=== PATIENT | male | born 1965 | race Caucasian/White ===

== ENCOUNTER 2016-11-22 14:20 | Emergency (ER) | payer BC ==
[2016-11-22 14:40] VITALS: BP 128/79
--- NOTE | 2016-11-22 15:24 | UC ---
Ear Complaint HPI - HPI Summary HPI Summary: patient has had right ear pain for about 1 week. the area around the ear is swollen and painful. no fever. - History of Current Complaint Chief Complaint: UCEar Stated Complaint: EAR PAIN Time Seen by Provider: 11/22/16 15:10 Hx Obtained From: Patient Onset/Duration: Sudden Onset, Lasting Days Severity Initially: Moderate Severity Currently: Moderate Pain Intensity: 7 Pain Scale Used: 0-10 Numeric Associated Signs/Symptoms: Positive: Discharge, Swelling @ - neck and behind ear - Allergies/Home Medications Allergies/Adverse Reactions: Allergies Allergy/AdvReac Type Severity Reaction Status Date / Time Morphine Allergy Anaphylatic Verified 11/22/16 14:40 Shock PMH/Surg Hx/FS Hx/Imm Hx Previously Healthy: Yes - Surgical History Surgical History: Yes Surgery Procedure, Year, and Place: LEFT ANKLE SURGERY. RIGHT SHOULDER SURGERY - Family History Known Family History: Positive: Cardiac Disease, Hypertension - Social History Alcohol Use: Occasionally Substance Use Type: None Smoking Status (MU): Never Smoked Tobacco Review of Systems Constitutional: Negative Skin: Negative Eyes: Negative ENT: Ear Ache Respiratory: Negative Cardiovascular: Negative Gastrointestinal: Negative Genitourinary: Negative Motor: Negative Neurovascular: Negative Musculoskeletal: Negative Neurological: Negative Psychological: Negative All Other Systems Reviewed And Are Negative: Yes Physical Exam Triage Information Reviewed: Yes Appearance: Well-Appearing, Pain Distress, Obese Vital Signs: Initial Vital Signs Temp 97.5 F 11/22/16 14:36 Pulse 86 11/22/16 14:36 Resp 18 11/22/16 14:36 BP 128/79 11/22/16 14:36 Pulse Ox 100 11/22/16 14:36 Vital Signs Reviewed: Yes Eye Exam: Normal Eyes: Positive: Conjunctiva Clear ENT Exam: Normal ENT: Positive: Normal ENT inspection, Pharynx normal, TMs normal Dental Exam: Normal Neck exam: Normal Neck: Positive: Supple, Nontender, Enlarged Nodes @ - behind ear, and right cervical Respiratory Exam: Normal Respiratory: Positive: Chest non-tender, Lungs clear, Normal breath sounds Cardiovascular Exam: Normal Cardiovascular: Positive: RRR, No Murmur, Pulses Normal Abdominal Exam: Normal Abdomen Description: Positive: Nontender, No Organomegaly, Soft Bowel Sounds: Positive: Present Musculoskeletal Exam: Normal Musculoskeletal: Positive: Strength Intact, ROM Intact, No Edema Neurological Exam: Normal Neurological: Positive: Alert, Muscle Tone Normal Psychological Exam: Normal Skin Exam: Normal Ear Complaint Course/Dx - Differential Dx/Diagnosis Differential Diagnosis/HQI/PQRI: Cellulitis, Otitis Externa, Otitis Media, Pharyngitis, Trauma, URI Provider Diagnoses: right otitis media. right otitis externa Discharge - Discharge Plan Condition: Stable Disposition: HOME Prescriptions: Amoxicillin CAP* 500 mg PO Q12H #14 cap Ciproflox/Dexameth OTIC.SUSP* [Ciprodex OTIC.SUSP*] 4 drop .SEE ORDER TID #1 btl Patient Education Materials: Otitis Externa (ED) Additional Instructions: take the medications as prescribed. I recommend follow up with your primary doctor in 1 week to make sure the infection is gone. If you develop any hearing loss, follow up immediately. ibuprofen or tylenol for pain and fever.
== END 2016-11-22 15:31 | disposition home or self-care (01) ==
LOC: UCCORT 14:20
DX: H66.91 Otitis media, unspecified, right ear (principal); H60.91 Unspecified otitis externa, right ear; Z88.5 Allergy status to narcotic agent
CPT/HCPCS: 99202; G0463

== ENCOUNTER 2018-04-18 19:50 | Emergency (ER) | payer BC ==
[2018-04-18 20:32] VITALS: BP 151/78
--- NOTE | 2018-04-18 21:14 | UC ---
[place]un[place] Trauma HPI - HPI Summary HPI Summary: Was trying to make a tackle and got pushed away and landed on some rocks on the right side of the chest. Painful with breathing. - History Of Current Complaint Chief Complaint: UCGeneralIllness Stated Complaint: RIGHT RIB PAIN S/P FALL Time Seen by Provider: 04/18/18 20:55 Hx Obtained From: Patient Onset/Duration: Sudden Onset, Lasting Hours - 9, Still Present Onset Of Pain: Immediate Severity Initially: Severe Severity Currently: Severe Pain Intensity: 9 Mechanism Of Injury: Blunt Trauma, Fall From A Standing Position Aggravating Factor(s): Deep Breathing Alleviating factor(s): Nothing Associated Signs And Symptoms: Positive: Chest Pain - Allergies/Home Medications Allergies/Adverse Reactions: Allergies Allergy/AdvReac Type Severity Reaction Status Date / Time morphine Allergy Severe anaphylactic Verified 04/18/18 20:33 shock Home Medications: Home Medications Aspirin [Aspirin Childrens 81 MG] 81 mg PO DAILY 04/18/18 [History Confirmed ] Cholesterol Medication 1 tab BEDTIME 04/18/18 [History Confirmed 04/18/18] SitaGLIPtin (NF) [Januvia (NF)] 100 mg PO BEDTIME 04/18/18 [History Confirmed ] metFORMIN* [Glucophage 1000 MG TAB *] 1,000 mg PO BID 04/18/18 [History Confirmed 04/18/18] PMH/Surg Hx/FS Hx/Imm Hx Endocrine History: Diabetes, Dyslipidemia - Surgical History Surgical History: Yes Surgery Procedure, Year, and Place: LEFT ANKLE SURGERY. RIGHT SHOULDER SURGERY - Family History Known Family History: Positive: Cardiac Disease, Hypertension - Social History Occupation: Employed Full-time Lives: Alone Alcohol Use: None Substance Use Type: None Smoking Status (MU): Never Smoked Tobacco Review of Systems Cardiovascular: Chest Pain - with breathing Is Patient Immunocompromised?: No All Other Systems Reviewed And Are Negative: Yes Physical Exam Triage Information Reviewed: Yes Appearance: Well-Appearing, Well-Nourished, Pain Distress Vital Signs: Initial Vital Signs Temp 99.1 F 04/18/18 20:28 Pulse 95 04/18/18 20:28 Resp 20 04/18/18 20:28 BP 151/78 04/18/18 20:28 Pulse Ox 98 04/18/18 20:28 Vital Signs Reviewed: Yes Eyes: Positive: Conjunctiva Clear Neck exam: Normal Respiratory Exam: Normal - some splinting Respiratory: Negative: Chest non-tender - tender right upper anterior chest wall Cardiovascular Exam: Normal Musculoskeletal: Positive: Edema @ - 1+ pretibial edema bilaterally Neurological Exam: Normal Psychological Exam: Normal Skin Exam: Normal Diagnostics - Radiology No standard instances Xray Interpretation: No Acute Changes Radiology Interpretation Completed By: Radiologist [place] Trauma Course/Dx - Differential Dx/Diagnosis Differential Diagnosis/HQI/PQRI: Abdominal Wall Contusion, Chest Wall Contusion , Chest Wall Abrasion, Rib Fracture Provider Diagnoses: Contusion right chest wall Discharge - Sign-Out/Discharge Documenting (check all that apply): Discharge/Admit/Transfer - Discharge Plan Condition: Stable Disposition: HOME Patient Education Materials: Rib Contusion (ED), Hydrocodone/Acetaminophen (By mouth) Referrals: Donna Parker PA [Primary Care Provider] - - Billing Disposition and Condition Condition: STABLE Disposition: Home
--- NOTE | 2018-04-18 21:34 | RAD ---
HISTORY: Trauma/ right sided rib pain COMPARISONS: None VIEWS: 7, Frontal view of the chest with frontal and oblique views of the right hemithorax. FINDINGS: There is no displaced rib fracture or pneumothorax. The visualized lungs are clear. IMPRESSION: NO DISPLACED RIB FRACTURE OR PNEUMOTHORAX.
[2018-04-18] MEDS ORDERED: HYDROcodone/ACETAMIN 5-325 MG* 1 TAB PO ONE (21:42)
== END 2018-04-18 21:56 | disposition home or self-care (01) ==
LOC: UCCORT 19:50
DX: S20.211A Contusion of right front wall of thorax, initial encounter (principal); W19.XXXA Unspecified fall, initial encounter; Y93.79 Activity, other specified sports and athletics; Y92.9 Unspecified place or not applicable; Z88.5 Allergy status to narcotic agent; E11.9 Type 2 diabetes mellitus without complications; Z79.84 Long term (current) use of oral hypoglycemic drugs
CPT/HCPCS: 99212; G0463